=== PATIENT | male | born 1965 | race Caucasian/White ===

== ENCOUNTER 2024-06-04 11:51 | Inpatient (IN) | payer OTHER, SELFPAY ==
[2024-06-04] VITALS (8 sets, daily range): BP systolic 142–160; BP diastolic 53–95; PULSE 89–104; TEMP 36.6–37.2; O2SAT 93–98; BMI 34.4; BMI 34.8
[2024-06-04 12:50] LABS: Basophils Absolute Auto 0.1 10^3/uL (0.0-0.1); Basophils Percent Auto 0.4 % (0.2-2.0); Eosinophils Absolute Auto 0.1 10^3/uL (0.0-0.7); Eosinophils Percent Auto 0.3 % (0.9-7.0); Hematocrit 55.9 % (42.0-54.0); Hemoglobin 18.6 g/dL (14.0-18.0); Immature Granulocytes Abs Auto 0.18 10^3/uL (0.00-0.03); Immature Granulocytes Pct Auto 0.9 % (0.0-0.5); Lymphocytes Absolute Auto 1.7 10^3/uL (1.2-3.8); Lymphocytes Percent Auto 9.1 % (20.5-60.0); Mean Corpuscular HGB Conc 33.3 g/dL (29.9-35.2); Mean Corpuscular Hemoglobin 33.2 pg (25.9-34.0); Mean Corpuscular Volume 99.8 fL (80.0-94.0); Mean Platelet Volume 9.3 fL (9.5-13.5); Monocytes Absolute Auto 1.2 10^3/uL (0.3-0.8); Monocytes Percent Auto 6.4 % (1.7-12.0); Neutrophils Absolute Auto 15.7 10^3/uL (1.4-6.5); Neutrophils Percent Auto 82.9 % (43.0-75.0); Platelet Count 217 10^3/uL (150-450); Red Cell Distribution Width 12.4 % (11.0-15.0)
[2024-06-04] MEDS: LIDOCAINE HCL 1% 100 MG/10 ML MDV INJ (12:52)
[2024-06-04 13:11] LABS: Alanine Aminotransferase 18 U/L (16-63); Albumin Globulin Ratio 0.8; Albumin Level 3.1 g/dL (3.4-5.0); Alkaline Phosphatase 69 U/L (46-116); Anion Gap 13.5; Aspartate Amino Transferase 24 U/L (15-37); BUN Creatinine Ratio 18.9; Bilirubin Total 1.9 mg/dL (0.2-1.0); Calcium 9.3 mg/dL (8.5-10.1); Carbon Dioxide 25.8 mmol/L (21.0-32.0); Chloride 104 mmol/L (98-107); Estimated GFR (African America >60 (>=60 mL/min/1.73m^2); Estimated GFR (Non-African Ame >60 (>=60 mL/min/1.73m^2); Globulin 4.1 g/dL; Glucose 102 mg/dL (74-106); Potassium 4.3 mmol/L (3.5-5.1); Sodium 139 mmol/L (136-145); Total Protein 7.2 g/dL (6.4-8.2)
[2024-06-04 13:13] LABS: Lactate/Lactic Acid 1.4 mmol/L (0.4-2.0)
[2024-06-04] MEDS: AMPICILLIN SODIUM/SULBACTAM NA 3 GM in 0.9 % SODIUM CHLORIDE 100 ML IV (13:35)
--- NOTE | 2024-06-04 13:56 | ED.SKABFB1 ---
HPI - Skin/Abscess/Foreign Bdy General Chief complaint: Skin/Abscess/Foreign Body Stated complaint: l ARM PAIN & SWELLING Time Seen by Provider: 06/04/24 12:10 Source: patient Mode of arrival: walk-in History of Present Illness HPI narrative: The patient is coming to the ER with a extensive redness of the left arm that he noted over the last 24 hours, and it has been growing in size, over the last few days the patient had a initially a rash on his left armpit that he was treating with [id number] medication, there was no other lesion or any concern for any other problems No fever no chills Related Data Home Medications ?Medication ?Instructions ?Recorded ?Confirmed hydrochlorothiazide 12.5 mg tablet 12.5 mg PO QAM 06/04/24 06/04/24 losartan 100 mg tablet 100 mg PO DAILY 06/04/24 06/04/24 sildenafil 50 mg tablet 50 mg PO DAILY PRN erectile 06/04/24 06/04/24 dysfunction Allergies Allergy/AdvReac Type Severity Reaction Status Date / Time No Known Drug Allergies Allergy Verified 06/04/24 12:01 Review of Systems ROS Status of ROS 10 or more systems reviewed and unremarkable except as noted in history and below PFSH PFSH Social History Little interest or pleasure in doing things: not at all Feeling down, depressed, or hopeless: not at all Exam Narrative Exam Narrative: Nurses notes and vital signs reviewed and patient is not hypoxic. Left upper extremity: Upon arrival the patient have a significant cheery redness of the left arm extending from the armpit down to the elbow medially with the area of the axilla showing a small 1 cm oval area around the lesion that could be secondary to an abscess collection. But the patient also had skin induration in the medial aspect of the arm No vascular injury detected General: Well-appearing and in no apparent distress. Skin: Warm, dry, no pallor noted. No rash. Head: Normocephalic, atraumatic. Neck: Supple, non-tender. Eye: Pupils are equal, round and EOMI. No scleral icterus. Ears, Nose, Mouth, and Throat: TM are clear, no nasal mucosal hypertrophy. Oral mucosa is moist, no posterior oropharynx erythema, uvula is mid-line Cardiovascular: Regular Rate and Rhythm without murmur, gallop or rub. Respiratory: No accessory muscle use or respiratory distress. Lungs are clear to auscultation, no wheezing, rales or rhonchi Chest Wall: no tenderness Back: No midline thoracic or lumbar vertebral tenderness. No CVA tenderness Musculoskeletal: normal ROM, no calf or popliteal tenderness, no lower extremity edema/swelling GI: Abdomen is soft, non-distended. Normal bowel sounds. No masses appreciated. No tenderness to palpation. No rebound, guarding, or rigidity noted. Neurological: A&O x4. No cranial nerve dysfunction observed. No truncal ataxia. Moves all extremities. Sensation intact. Psychiatric: Cooperative and interactive. Normal mood and affect. Constitutional Vital Signs, click to edit/add: Last Vital Signs Temp 98.1 F 06/04/24 11:55 Pulse 92 H 06/04/24 11:55 Resp 16 06/04/24 11:55 BP 148/95 H 06/04/24 11:55 Pulse Ox 98 06/04/24 11:55 O2 Del Method Room Air 06/04/24 11:55 Course Vital Signs Vital signs: Vital Signs Temperature 98.1 F 06/04/24 11:55 Pulse Rate 92 H 06/04/24 11:55 Respiratory Rate 16 06/04/24 11:55 Blood Pressure 148/95 H 06/04/24 11:55 Pulse Oximetry 98 06/04/24 11:55 Oxygen Delivery Method Room Air 06/04/24 11:55 Temperature 98.1 F 06/04/24 11:55 Pulse Rate 92 H 06/04/24 11:55 Respiratory Rate 16 06/04/24 11:55 Blood Pressure 148/95 H 06/04/24 11:55 Pulse Oximetry 98 06/04/24 11:55 Oxygen Delivery Method Room Air 06/04/24 11:55 MDM - Skin/Abscess/Foreign Bdy MDM Narrative Medical decision making narrative: The patient CBC shows leukocytosis lactic is not elevated With the patient elevated white blood cells and the fact that it is significant redness noticed on examination. The patient was advised that IV antibiotic would be needed due to the tension and the speed of extension of the cellulitis The patient had bedside drainage of the area after injecting it with lidocaine 1% almost 2 cc draining almost 2 cc of pus. The patient then had a culture sent for evaluation The patient was started on Unasyn Patient case was discussed with Dr. Flynn and he agreed on admitting the patient for further evaluation of cellulitis Lab Data Labs: Lab Results 06/04/24 Range/Units 12:37 WBC 19.0 H (4.0-11.0) 10^3/uL RBC 5.60 (4.70-6.10) 10^6/uL Hgb 18.6 H (14.0-18.0) g/dL Hct 55.9 H (42.0-54.0) % MCV 99.8 H (80.0-94.0) fL MCH 33.2 (25.9-34.0) pg MCHC 33.3 (29.9-35.2) g/dL RDW 12.4 (11.0-15.0) % Plt Count 217 (150-450) 10^3/uL MPV 9.3 L (9.5-13.5) fL Neut % (Auto) 82.9 H (43.0-75.0) % Lymph % (Auto) 9.1 L (20.5-60.0) % [place] % (Auto) 6.4 (1.7-12.0) % Eos % (Auto) 0.3 L (0.9-7.0) % Baso % (Auto) 0.4 (0.2-2.0) % Neut # (Auto) 15.7 H (1.4-6.5) 10^3/uL Lymph # (Auto) 1.7 (1.2-3.8) 10^3/uL [place] # (Auto) 1.2 H (0.3-0.8) 10^3/uL Eos # (Auto) 0.1 (0.0-0.7) 10^3/uL Baso # (Auto) 0.1 (0.0-0.1) 10^3/uL Abs Immat Gran (auto) 0.18 H (0.00-0.03) 10^3/uL Imm/Tot Granulo (auto) 0.9 H (0.0-0.5) % Sodium 139 (136-145) mmol/L Potassium 4.3 (3.5-5.1) mmol/L Chloride 104 (98-107) mmol/L Carbon Dioxide 25.8 (21.0-32.0) mmol/L Anion Gap 13.5 BUN 17.0 (7.0-18.0) mg/dL Creatinine 0.90 (0.70-1.30) mg/dL Est GFR ( Amer) >60 (>=60 mL/min/1.73m^2) Est GFR (Non-Af Amer) >60 (>=60 mL/min/1.73m^2) BUN/Creatinine Ratio 18.9 Glucose 102 (74-106) mg/dL Lactate 1.4 (0.4-2.0) mmol/L Calcium 9.3 (8.5-10.1) mg/dL Total Bilirubin 1.9 H (0.2-1.0) mg/dL AST 24 (15-37) U/L ALT 18 (16-63) U/L Alkaline Phosphatase 69 (46-116) U/L Total Protein 7.2 (6.4-8.2) g/dL Albumin 3.1 L (3.4-5.0) g/dL Globulin 4.1 g/dL Albumin/Globulin Ratio 0.8 Discharge Plan Discharge Chief Complaint: Skin/Abscess/Foreign Body Clinical Impression: Cellulitis Patient Disposition: Admitted as Observation Time of Disposition Decision: 13:52
--- NOTE | 2024-06-04 14:19 | P.HP_ITS ---
HPI H&P: HPI History of Present Illness Chief complaint: l ARM PAIN & SWELLING Narrative: Patient with a progressive swelling and erythema of his left inner upper arm, denies any bite or open wound at the time, today the erythema had progressed to almost the entirety of his upper arm now progressing past the elbow, presented to emergency room, has been using heat and ice without any effect, also started noticing some drainage today. When I saw patient in the emergency room, he was resting comfortably bed, only complaint is his left upper arm, denies chest pain or shortness of breath, feels a little fatigued at times is felt feverish but did not check his temperature Opioid HPI Opioid Management Most Recent Pain and Opioid Data: No Data to Display Review of Systems ROS Status of ROS 10 or more systems reviewed and unremark able except as noted in history and below PFSH PFSH Social History Little interest or pleasure in doing things: not at all Feeling down, depressed, or hopeless: not at all Meds Home Medications and Allergies Home Medications ?Medication ?Instructions ?Recorded ?Confirmed ?Type hydrochlorothiazide 12.5 mg tablet 12.5 mg PO QAM 06/04/24 06/04/24 History losartan 100 mg tablet 100 mg PO DAILY 06/04/24 06/04/24 History sildenafil 50 mg tablet 50 mg PO DAILY PRN erectile 06/04/24 06/04/24 History dysfunction Allergies Allergy/AdvReac Type Severity Reaction Status Date / Time No Known Drug Allergies Allergy Verified 06/04/24 12:01 Exam Constitutional Vital Signs, click to edit/add: Last Vital Signs Temp 98.1 F 06/04/24 11:55 Pulse 92 H 06/04/24 11:55 Resp 16 06/04/24 11:55 BP 148/95 H 06/04/24 11:55 Pulse Ox 98 06/04/24 11:55 O2 Del Method Room Air 06/04/24 11:55 Documenting provider has reviewed patient's vital signs: yes Common normals: no apparent distress Respiratory Common normals: normal respiratory effort and no retractions Cardio Common normals: regular rate and regular rhythm GI Common normals: Normal to inspection, nondistended, normoactive bowel sounds present, soft to palpation and non-tender Extremity Common normals: abnormal to inspection (Erythema covering the entirety of his left upper inner arm, progressed past) General: normal exam except as noted (progressed past elbow, line placed) Results Labs Labs: Short CBC 06/04/24 Range/Units 12:37 WBC 19.0 H (4.0-11.0) 10^3/uL Hgb 18.6 H (14.0-18.0) g/dL Hct 55.9 H (42.0-54.0) % Plt Count 217 (150-450) 10^3/uL BMP 06/04/24 12:37 Sodium 139 Potassium 4.3 Chloride 104 Carbon Dioxide 25.8 BUN 17.0 Creatinine 0.90 Glucose 102 Calcium 9.3 Liver Function 06/04/24 Range/Units 12:37 Total Bilirubin 1.9 H (0.2-1.0) mg/dL AST 24 (15-37) U/L ALT 18 (16-63) U/L Alkaline Phosphatase 69 (46-116) U/L Albumin 3.1 L (3.4-5.0) g/dL Assessment and Plan Assessment and Plan (1) Cellulitis: (2) Status post bariatric surgery: (3) Hypertension: Plan Admission findings: Progressive cellulitis now covering the entirety of his left upper inner arm, small abscess with drainage, significant leukocytosis, patient admitted for IV antibiotics Cellulitis left upper extremity with possible small abscess formation-will check culture of any drainage, blood cultures x 2, patient with significant leukocytosis-start patient on Rocephin and clindamycin, if much improved tomorrow possible conversion to oral History gastric bypass surgery-no complications Hypertension-stable, will continue with current medications Admission status: Patient with untreated cellulitis of left upper arm, IV antibiotics today, blood cultures obtained, try to obtain wound culture, since untreated, medically necessary treatment may only span 1 midnight, observation status
[2024-06-04 14:35] LABS: C Reactive Protein 17.42 mg/dL (<=0.50)
[2024-06-04] MEDS: LACTATED RINGER'S SOLUTION 1,000 ML 100 ML IV (15:37)
[2024-06-04 16:03] LABS: Lactate/Lactic Acid 1.7 mmol/L (0.4-2.0)
[2024-06-04] MEDS: CEFTRIAXONE 1,000 MG in 0.9 % SODIUM CHLORIDE 50 ML 100 MG IV (18:43)
[2024-06-04] MEDS: ACETAMINOPHEN 500 MG TABLET 1000 MG PO (18:44)
[2024-06-04] MEDS: CLINDAMYCIN PHOSPHATE/D5W 600 MG/50 ML PREMIX 100 MG IV (20:38)
[2024-06-05] VITALS (7 sets, daily range): BP systolic 133–167; BP diastolic 72–90; PULSE 77–100; TEMP 36.6–37.1; O2SAT 95–98
[2024-06-05] MEDS: CLINDAMYCIN PHOSPHATE/D5W 600 MG/50 ML PREMIX 100 MG IV (01:54)
[2024-06-05] MEDS: ACETAMINOPHEN 500 MG TABLET 1000 MG PO ×3 (01:57→21:54)
[2024-06-05] MEDS: LACTATED RINGER'S SOLUTION 1,000 ML 100 ML IV (03:04)
[2024-06-05 05:58] LABS: Basophils Absolute Auto 0.1 10^3/uL (0.0-0.1); Basophils Percent Auto 0.4 % (0.2-2.0); Eosinophils Absolute Auto 0.1 10^3/uL (0.0-0.7); Eosinophils Percent Auto 0.8 % (0.9-7.0); Hematocrit 53.8 % (42.0-54.0); Immature Granulocytes Pct Auto 0.6 % (0.0-0.5); Lymphocytes Absolute Auto 1.3 10^3/uL (1.2-3.8); Lymphocytes Percent Auto 7.5 % (20.5-60.0); Mean Corpuscular HGB Conc 33.5 g/dL (29.9-35.2); Mean Corpuscular Hemoglobin 33.5 pg (25.9-34.0); Mean Corpuscular Volume 100.2 fL (80.0-94.0); Mean Platelet Volume 9.1 fL (9.5-13.5); Monocytes Percent Auto 5.6 % (1.7-12.0); Neutrophils Percent Auto 85.1 % (43.0-75.0); Platelet Count 206 10^3/uL (150-450); Red Blood Count 5.37 10^6/uL (4.70-6.10); Red Cell Distribution Width 12.4 % (11.0-15.0); White Blood Count 17.6 10^3/uL (4.0-11.0)
[2024-06-05 06:12] LABS: Anion Gap 12.8; BUN Creatinine Ratio 19.2; C Reactive Protein 17.15 mg/dL (<=0.50); Carbon Dioxide 25.1 mmol/L (21.0-32.0); Chloride 104 mmol/L (98-107); Estimated GFR (African America >60 (>=60 mL/min/1.73m^2); Estimated GFR (Non-African Ame >60 (>=60 mL/min/1.73m^2); Glucose 113 mg/dL (74-106); Potassium 3.9 mmol/L (3.5-5.1); Sodium 138 mmol/L (136-145)
[2024-06-05] MEDS: LOSARTAN POTASSIUM 50 MG TABLET 100 MG PO (09:20)
--- NOTE | 2024-06-05 09:57 | US_ITS ---
[address] [address] Patient Name: DOROTA MENDOZA MRN: [id number] date: 1965 Sex: M Assigned Patient Location: [place] Current Patient Location: [place] Accession/Order Number: [id number] Exam Date: 06/05/2024 10:00 Report Date: 06/05/2024 11:44 At the request of: SHAIKH KRISHNA Procedure: US venous doppler UE LT EXAM: US venous doppler UE LT HISTORY: cellulitis COMPARISON: None. TECHNIQUE: Doppler color flow as well as spectral analysis of the left upper extremity. Findings: There is adequate flow, compressibility, or augmentation within the visualized deep venous structures of the left upper extremity. Mild subcutaneous edema. US/US venous doppler UE LT IMPRESSION: 1. No deep venous thrombus. Electronically authenticated by: ENLSON HOGAN Date: 06/05/2024 11:44
[2024-06-05] MEDS: VANCOMYCIN HCL 1,750 MG in 0.9 % SODIUM CHLORIDE 500 ML 250 MG IV ×2 (10:24→21:45)
--- NOTE | 2024-06-05 10:30 | CM.NOTE ---
Rounds made with Dr. Gallegos, pt continues to have pain to L arm. Pt will change to inpatient and continue IV antibiotics and close monitoring. RN reports they put new line around swelling through the night d/t increased swelling.
[2024-06-05 10:38] LABS: Estimated Average Glucose 100 mg/dL; Glycohemoglobin A1C 5.1 % (4.5-6.2)
--- NOTE | 2024-06-05 11:12 | P.IMPN_ITS ---
Progress Note: A&P Assessment and Plan (1) Sepsis: Assessment and Plan: Patient meet sepsis criteria upon admission. HR > 90, WBC> 13K due to cellulitis. Hemodynamically stable now. Leukocytosis improved However, overnight erythema/skin induration worsened despite on IV abx Qualifiers: Sepsis type: sepsis due to unspecified organism Sepsis acute organ dysfunction status: without acute organ dysfunction Qualified Code(s): A41.9 - Sepsis, unspecified organism (2) Cellulitis and abscess of upper extremity: Assessment and Plan: Cellulitis and abscess of LUE. Worse overnight despite IV abx. Dc'ed clindamycin. Added IV vancomycin. C/w IV rocephin. US ordered to r/o deep tissue infection /abscess (3) Hypertension: Assessment and Plan: Above goal, could be due to current illness. On IV hydralazine as needed. C/w losartan Qualifiers: Hypertension type: primary hypertension Qualified Code(s): I10 - Essential (primary) hypertension Plan Patient originally admitted as observation for sepsis/cellulitis & abscess. While he is better hemodynamically after fluid resuscitation, his cellulitis is worse despite IV abx. Changed IV abx - started on IV vancomycin. US ordered to r/o abscess/deep tissue infection. Patient changed to inpatient as he failed to improve clinically despite initial period of observation and treatment with IV Fluids and IV abx. Internal Medicine - PN: Subj Subjective Interval history: Seen and examined. No overnight events. Overnight, erythema/pain worsened and extended beyond original demarcation line. No fever/chills. Pain is persistent, worse on minimal movement Exam Constitutional Vital Signs, click to edit/add: Last Vital Signs Temp 98.7 F 06/05/24 07:17 Pulse 77 06/05/24 07:17 Resp 18 06/05/24 08:00 BP 142/90 H 06/05/24 07:17 Pulse Ox 95 06/05/24 07:17 O2 Del Method Room Air 06/05/24 07:17 Documenting provider has reviewed patient's vital signs: yes Common normals: no apparent distress and oriented x3 General appearance: cooperative Respiratory Common normals: normal respiratory effort and clear to auscultation bilaterally Effort & inspection: able to speak in complete sentences Auscultation: clear to auscultation bilaterally Cardio Common normals: regular rate, S1 normal heart sound and S2 normal heart sound Rate: regular rate Heart sounds: S1 normal and S2 normal Extremity Other: Left UE - erythema, induration, tenderness extending from just below elbow to all the way upto shoulder. No fluctuance on exam noted. Neuro Common normals: oriented x3, moves all extremities and no focal motor deficits Psych Common normals: mental status grossly normal, denies hallucinations, denies homicidal ideation and denies suicidal ideation Internal Medicine - PN: Obj Da Labs Labs: Laboratory Results - last 24 hr 06/04/24 06/04/24 06/05/24 12:37 15:37 05:46 WBC 19.0 H 17.6 H RBC 5.60 5.37 Hgb 18.6 H 18.0 Hct 55.9 H 53.8 MCV 99.8 H 100.2 H MCH 33.2 33.5 MCHC 33.3 33.5 RDW 12.4 12.4 Plt Count 217 206 MPV 9.3 L 9.1 L Neut % (Auto) 82.9 H 85.1 H Lymph % (Auto) 9.1 L 7.5 L [place] % (Auto) 6.4 5.6 Eos % (Auto) 0.3 L 0.8 L Baso % (Auto) 0.4 0.4 Neut # (Auto) 15.7 H 15.0 H Lymph # (Auto) 1.7 1.3 [place] # (Auto) 1.2 H 1.0 H Eos # (Auto) 0.1 0.1 Baso # (Auto) 0.1 0.1 Abs Immat Gran (auto) 0.18 H 0.10 H Imm/Tot Granulo (auto) 0.9 H 0.6 H Sodium 139 138 Potassium 4.3 3.9 Chloride 104 104 Carbon Dioxide 25.8 25.1 Anion Gap 13.5 12.8 BUN 17.0 15.0 Creatinine 0.90 0.78 Est GFR ( Amer) >60 >60 Est GFR (Non-Af Amer) >60 >60 BUN/Creatinine Ratio 18.9 19.2 Glucose 102 113 H Estimat Average Glucose 100 Hemoglobin A1c 5.1 Lactate 1.4 1.7 Calcium 9.3 9.0 Total Bilirubin 1.9 H AST 24 ALT 18 Alkaline Phosphatase 69 C-Reactive Protein 17.42 H 17.15 H Total Protein 7.2 Albumin 3.1 L Globulin 4.1 Albumin/Globulin Ratio 0.8
[2024-06-05] MEDS: CEFTRIAXONE 1,000 MG in 0.9 % SODIUM CHLORIDE 50 ML 100 MG IV (17:48)
[2024-06-05] MEDS: 0.9 % SODIUM CHLORIDE 250 ML 10 ML IV (17:48)
[2024-06-06] VITALS (7 sets, daily range): BP systolic 130–169; BP diastolic 76–93; PULSE 68–80; TEMP 36.6–36.8; O2SAT 94–98
[2024-06-06] MEDS: ACETAMINOPHEN 500 MG TABLET 1000 MG PO (05:35)
[2024-06-06 05:59] LABS: Basophils Absolute Auto 0.1 10^3/uL (0.0-0.1); Basophils Percent Auto 0.5 % (0.2-2.0); Eosinophils Absolute Auto 0.3 10^3/uL (0.0-0.7); Eosinophils Percent Auto 2.8 % (0.9-7.0); Hematocrit 52.1 % (42.0-54.0); Hemoglobin 17.2 g/dL (14.0-18.0); Immature Granulocytes Abs Auto 0.06 10^3/uL (0.00-0.03); Immature Granulocytes Pct Auto 0.5 % (0.0-0.5); Lymphocytes Absolute Auto 1.2 10^3/uL (1.2-3.8); Lymphocytes Percent Auto 10.4 % (20.5-60.0); Mean Corpuscular Hemoglobin 33.4 pg (25.9-34.0); Mean Corpuscular Volume 101.2 fL (80.0-94.0); Mean Platelet Volume 9.3 fL (9.5-13.5); Monocytes Absolute Auto 0.8 10^3/uL (0.3-0.8); Neutrophils Absolute Auto 9.1 10^3/uL (1.4-6.5); Neutrophils Percent Auto 78.8 % (43.0-75.0); Platelet Count 231 10^3/uL (150-450); Red Blood Count 5.15 10^6/uL (4.70-6.10); Red Cell Distribution Width 12.4 % (11.0-15.0); White Blood Count 11.6 10^3/uL (4.0-11.0)
[2024-06-06 06:11] LABS: Anion Gap 10.4; BUN Creatinine Ratio 17.1; Calcium 8.9 mg/dL (8.5-10.1); Carbon Dioxide 27.8 mmol/L (21.0-32.0); Chloride 107 mmol/L (98-107); Estimated GFR (African America >60 (>=60 mL/min/1.73m^2); Estimated GFR (Non-African Ame >60 (>=60 mL/min/1.73m^2); Glucose 105 mg/dL (74-106); Potassium 4.2 mmol/L (3.5-5.1); Sodium 141 mmol/L (136-145)
[2024-06-06] MEDS: LOSARTAN POTASSIUM 50 MG TABLET 100 MG PO (08:32)
[2024-06-06] MEDS: VANCOMYCIN HCL 1,750 MG in 0.9 % SODIUM CHLORIDE 500 ML 250 MG IV ×2 (09:59→21:24)
--- NOTE | 2024-06-06 10:23 | PM.IMPN1 ---
Progress Note: A&P Assessment and Plan (1) Sepsis: Assessment and Plan: Resolved. Leukocytosis improving. No sig improvement noted in cellulitis. Stable hemodynamics. F/u cultures. C/w IV abx. D/c rocephin, add zosyn Qualifiers: Sepsis type: sepsis due to unspecified organism Sepsis acute organ dysfunction status: without acute organ dysfunction Qualified Code(s): A41.9 - Sepsis, unspecified organism (2) Cellulitis and abscess of upper extremity: Assessment and Plan: Copious purulent drainage after I&D at bedside. Pt subjectively felt better right away. Still has considerable erythema/skin induration and tenderness. No sig improvement from yesterday. C/w IV vancomycin. Add Zosyn. D/c rocephin (3) Hypertension: Assessment and Plan: Stable. C/w losartan Qualifiers: Hypertension type: primary hypertension Qualified Code(s): I10 - Essential (primary) hypertension Internal Medicine - PN: Subj Subjective Interval history: Seen and examined. Overnight, patient experienced worsening of his pain and LUE swelling. He also reported purulent discharge from incision site - incision was made by ED provider when he arrived. Exam Constitutional Vital Signs, click to edit/add: Last Vital Signs Temp 98.3 F 06/06/24 07:09 Pulse 80 06/06/24 07:09 Resp 18 06/06/24 07:09 BP 130/76 06/06/24 07:09 Pulse Ox 94 L 06/06/24 07:09 O2 Del Method Room Air 06/06/24 07:09 Documenting provider has reviewed patient's vital signs: yes Common normals: no apparent distress and oriented x3 General appearance: cooperative Respiratory Common normals: normal respiratory effort and clear to auscultation bilaterally Effort & inspection: able to speak in complete sentences Auscultation: clear to auscultation bilaterally Cardio Common normals: regular rate, S1 normal heart sound and S2 normal heart sound Rate: regular rate Heart sounds: S1 normal and S2 normal Extremity Other: Left UE - erythema, induration, tenderness extending from just below elbow to all the way upto shoulder. Mild improvement from yesterday. Purulent drainage from small area close to shoulder joint. Copious amount of purulent was drained at bedside. I also performed bedside I&D and patient reported instantly feeling better afterwards. Wound was dressed/packed. Neuro Common normals: oriented x3, moves all extremities and no focal motor deficits Psych Common normals: mental status grossly normal, denies hallucinations, denies homicidal ideation and denies suicidal ideation Internal Medicine - PN: Obj Da Labs Labs: Laboratory Results - last 24 hr 06/05/24 06/06/24 05:46 05:45 WBC 11.6 H RBC 5.15 Hgb 17.2 Hct 52.1 MCV 101.2 H MCH 33.4 MCHC 33.0 RDW 12.4 Plt Count 231 MPV 9.3 L Neut % (Auto) 78.8 H Lymph % (Auto) 10.4 L [place] % (Auto) 7.0 Eos % (Auto) 2.8 Baso % (Auto) 0.5 Neut # (Auto) 9.1 H Lymph # (Auto) 1.2 [place] # (Auto) 0.8 Eos # (Auto) 0.3 Baso # (Auto) 0.1 Abs Immat Gran (auto) 0.06 H Imm/Tot Granulo (auto) 0.5 Sodium 141 Potassium 4.2 Chloride 107 Carbon Dioxide 27.8 Anion Gap 10.4 BUN 14.0 Creatinine 0.82 Est GFR ( Amer) >60 Est GFR (Non-Af Amer) >60 BUN/Creatinine Ratio 17.1 Glucose 105 Estimat Average Glucose 100 Hemoglobin A1c 5.1 Calcium 8.9
--- NOTE | 2024-06-06 10:28 | CM.NOTE ---
Rounds made with Dr. Gallegos. Bedside I&D per Dr. Gallegos. Mr. Izaguirre tolerated procedure well. Dr. Gallegos to re-evaluate Mr. Izaguirre later in the day to determine plan of care.
[2024-06-06] MEDS: PIPERACILLIN SODIUM/TAZOBACTAM 3.375 GM in 0.9 % SODIUM CHLORIDE 50 ML IV ×2 (12:32→21:14)
[2024-06-06] MEDS: KETOROLAC TROMETHAMINE 30 MG/ML VIAL IVP (12:32)
[2024-06-07] MEDS: PIPERACILLIN SODIUM/TAZOBACTAM 3.375 GM in 0.9 % SODIUM CHLORIDE 50 ML IV ×2 (04:25→13:13)
[2024-06-07 05:30] VITALS: BP 158/98; PULSE 75; TEMP 36.7; O2SAT 94
[2024-06-07 05:38] LABS: Basophils Absolute Auto 0.1 10^3/uL (0.0-0.1); Basophils Percent Auto 0.9 % (0.2-2.0); Eosinophils Absolute Auto 0.4 10^3/uL (0.0-0.7); Eosinophils Percent Auto 4.3 % (0.9-7.0); Hematocrit 49.7 % (42.0-54.0); Hemoglobin 16.4 g/dL (14.0-18.0); Immature Granulocytes Abs Auto 0.04 10^3/uL (0.00-0.03); Immature Granulocytes Pct Auto 0.4 % (0.0-0.5); Lymphocytes Absolute Auto 1.3 10^3/uL (1.2-3.8); Lymphocytes Percent Auto 14.2 % (20.5-60.0); Mean Corpuscular Hemoglobin 32.7 pg (25.9-34.0); Mean Corpuscular Volume 99.2 fL (80.0-94.0); Mean Platelet Volume 9.1 fL (9.5-13.5); Monocytes Absolute Auto 0.7 10^3/uL (0.3-0.8); Monocytes Percent Auto 7.3 % (1.7-12.0); Neutrophils Absolute Auto 6.7 10^3/uL (1.4-6.5); Neutrophils Percent Auto 72.9 % (43.0-75.0); Platelet Count 249 10^3/uL (150-450); Red Blood Count 5.01 10^6/uL (4.70-6.10); Red Cell Distribution Width 12.1 % (11.0-15.0); White Blood Count 9.2 10^3/uL (4.0-11.0)
[2024-06-07 05:57] LABS: Anion Gap 13.1; BUN Creatinine Ratio 17.1; Calcium 8.9 mg/dL (8.5-10.1); Chloride 109 mmol/L (98-107); Estimated GFR (African America >60 (>=60 mL/min/1.73m^2); Estimated GFR (Non-African Ame >60 (>=60 mL/min/1.73m^2); Glucose 102 mg/dL (74-106); Potassium 4.1 mmol/L (3.5-5.1); Sodium 143 mmol/L (136-145)
[2024-06-07 07:53] VITALS: BP 155/90; PULSE 76; TEMP 36.9; O2SAT 96
[2024-06-07] MEDS: ACETAMINOPHEN 500 MG TABLET 1000 MG PO (09:13)
[2024-06-07] MEDS: LOSARTAN POTASSIUM 50 MG TABLET 100 MG PO (09:13)
[2024-06-07] MEDS: VANCOMYCIN HCL 1,750 MG in 0.9 % SODIUM CHLORIDE 500 ML 250 MG IV (09:14)
[2024-06-07 09:34] LABS: Vancomycin Trough 13.5 ug/mL (5.0-20.0)
--- NOTE | 2024-06-07 10:28 | PM.DS1 ---
DS: Providers Provider Date of admission: 06/05/24 11:12 Primary care physician: OUMOU GREWAL Admitting clinician: Yamil Flynn Attending physician on admission: Yamil Flynn Attending physician on discharge: Shaikh Rosy Discharging clinician: Shaikh Rosy Anticipated date of discharge: 06/07/24 DS: Diagnosis Discharge Diagnosis (1) Sepsis: Qualifiers: Sepsis type: sepsis due to unspecified organism Sepsis acute organ dysfunction status: without acute organ dysfunction Qualified Code(s): A41.9 - Sepsis, unspecified organism (2) Cellulitis and abscess of upper extremity: (3) Hypertension: Qualifiers: Hypertension type: primary hypertension Qualified Code(s): I10 - Essential (primary) hypertension DS: Summary Hospital Course Hospital Course: 58-year-old male presented to ER with left upper extremity pain/redness and swelling. Patient's workup was consistent with sepsis sec to left upper extremities cellulitis and abscess for which she was started on IV clindamycin and Rocephin. He had bedside incision and drainage with purulent material expressed in ER. Patient failed to improve clinically and was subsequently started on IV vancomycin and IV Zosyn. I also performed bedside incision and drainage and was able to drain copious amount of purulent material. Patient slowly improved during the course of admission and today feels well enough with improvement in erythema/swelling and tenderness. Patient is medically stable for discharge. He will be discharged on oral Bactrim and Augmentin for 10 more days. He will need to follow-up with primary care physician in 1 week to ensure he is improving clinically. Patient was educated on worrisome signs and symptoms and was instructed to return to ER if he develops fever or worsening pain/purulence or erythema. Status at Discharge Functional status at discharge: independent ambulation Overall status at discharge: patient is back to baseline Time Spent with Patient Time attestation: Total time spent providing and/or coordinating discharge services: Time spent: greater than 30 minutes Exam Constitutional Vital Signs, click to edit/add: Last Vital Signs Temp 98.4 F 06/07/24 07:53 Pulse 76 06/07/24 07:53 Resp 18 06/07/24 07:53 BP 155/90 H 06/07/24 07:53 Pulse Ox 96 06/07/24 07:53 O2 Del Method Room Air 06/07/24 07:53 Documenting provider has reviewed patient's vital signs: yes Common normals: no apparent distress and oriented x3 General appearance: cooperative Respiratory Common normals: normal respiratory effort and clear to auscultation bilaterally Effort & inspection: able to speak in complete sentences Auscultation: clear to auscultation bilaterally Cardio Common normals: regular rate, S1 normal heart sound and S2 normal heart sound Rate: regular rate Heart sounds: S1 normal and S2 normal Extremity Other: Left UE - erythema, induration, tenderness considerably improved. Large amount of purulent material expressed from incision made on 06/06/24. Neuro Common normals: oriented x3, moves all extremities and no focal motor deficits Psych Common normals: mental status grossly normal, denies hallucinations, denies homicidal ideation and denies suicidal ideation DS: Data Data Completed and Pending Labs on day of discharge: Labs from last 24 hours 06/07/24 06/07/24 08:58 05:27 WBC 9.2 RBC 5.01 Hgb 16.4 Hct 49.7 MCV 99.2 H MCH 32.7 MCHC 33.0 RDW 12.1 Plt Count 249 MPV 9.1 L Neut % (Auto) 72.9 Lymph % (Auto) 14.2 L [place] % (Auto) 7.3 Eos % (Auto) 4.3 Baso % (Auto) 0.9 Neut # (Auto) 6.7 H Lymph # (Auto) 1.3 [place] # (Auto) 0.7 Eos # (Auto) 0.4 Baso # (Auto) 0.1 Abs Immat Gran (auto) 0.04 H Imm/Tot Granulo (auto) 0.4 Sodium 143 Potassium 4.1 Chloride 109 H Carbon Dioxide 25.0 Anion Gap 13.1 BUN 14.0 Creatinine 0.82 Est GFR ( Amer) >60 Est GFR (Non-Af Amer) >60 BUN/Creatinine Ratio 17.1 Glucose 102 Calcium 8.9 Vancomycin Trough 13.5 Preliminary micro results at discharge 06/04/24 13:29 Blood Culture Result 2 - Preliminary Blood NO GROWTH AT 36-48 HOURS. FINAL TO FOLLOW. 06/04/24 13:25 Blood Culture Result 1 - Preliminary Blood NO GROWTH AT 36-48 HOURS. FINAL TO FOLLOW. Discharge Plan Discharge Disposition: Home, Self-Care Discharge Medications: New amoxicillin-pot clavulanate 875-125 mg tablet 1 tab PO BID Qty: 20 0RF sulfamethoxazole-trimethoprim [Bactrim DS] 800-160 mg tablet 1 tab PO BID Qty: 20 0RF Continued losartan 100 mg tablet 100 mg PO DAILY sildenafil 50 mg tablet 50 mg PO DAILY PRN (Reason: erectile dysfunction) Activity: increase activity as tolerated Diet: advance to your usual diet Print Language: Korean Forms: Portal Instructions Follow Up Appointments: F/u with PCP in one week
--- NOTE | 2024-06-07 11:00 | CM.NOTE ---
Rounds made with Dr. Gallegos, assessed pt's wound and was able to express moderate amt of puss from wound bed. Pt will discharge on P.O. antibiotics. Discussed with pt reasons to return to ER, increase redness, swelling, pain or fever's.
[2024-06-07 11:20] VITALS: BP 155/88; PULSE 74; TEMP 36.7; O2SAT 95
--- NOTE | 2024-06-07 18:11 | NUTR.NU ---
Pt was admitted 06/04/24 w/dx sepsis and abscess to left axilla. He is s/p bariatric surgery and adjusting his diet to accommodate GI reduction. PO intakes improved during stay from 25% to 100%. Encourage small meals/snacks containing high quality PRO 6x daily, drink fluids between meals and avoid carbonated beverages and alcohol. Pt to discharge today with continued ATB therapy.
--- NOTE | 2024-06-08 12:10 | CM.NOTE ---
Called pt to update on recent culture that had came back MRSA and need to change antibiotic. Pt will discontinue Bactrim and start Zyvox. Pt verbaizes understanding and denies any questions or concerns.
--- NOTE | 2024-06-09 15:41 | CM.DCFOLLOWU ---
Person spoke with:patient How are you feeling?well How is your pain?better Did you understand your discharge instructions?yes Do you have any questions about your discharge instructions? no Were you given any prescriptions at discharge?yes Were you able to get your prescriptions filled? The new med that was called in, the pharmacy has not got it in yet. Advised to pt that SW will check with director or call the pharmacy Do you understand how to take your medications as ordered?yes Do you have any questions about your follow up appointment and do you plan to keep your follow up appointment? no questions, reviewed follow up Is there anything else that you would like to discuss?no Questions/Comments/Concerns/Other:N/A
--- NOTE | 2024-06-09 15:42 | SWNOTE1 ---
ARTURO completed follow up call and pt said the new medication that was called in on 06/08/24, Sofie did not have ready yet. He was not sure if he should continue meds he was dc on? ARTURO advised pt that she will call back after speaking with director of med/surge. ARTURO spoke to director and only thing we can do is call pharmacy. ARTURO called [facility] pharmacy and spoke to pharmacist. They voiced it was ready for pharmacy picking technician and it was $10. ARTURO called pt and let him know.
== END 2024-06-07 15:09 | disposition home or self-care (01) | DRG 872 ==
LOC: ER 13:52 → MS 15:07
PROVIDERS: Family Medicine; Admitting Provider Internal Medicine; Emergency Provider Emergency Medicine; PCP Family Medicine; Visit Provider Internal Medicine
DX: A41.02 Sepsis due to Methicillin resistant Staphylococcus aureus (principal); L03.114 Cellulitis of left upper limb; L02.414 Cutaneous abscess of left upper limb; I10 Essential (primary) hypertension; Z98.84 Bariatric surgery status
CPT/HCPCS: 10060; 36415; 80048; 80053; 80202; 83036; 83605; 85025; 86140; 87040; 87070; 87075; 87150; 87186; 93971; 94761; 96365; 99285; G0378; J0295; J0696; J1885; J2543; J3370

== ENCOUNTER 2024-07-25 13:39 | Emergency (ER) | payer OTHER, SELFPAY ==
[2024-07-25 13:43] VITALS: BP 166/89; PULSE 83; TEMP 36.6; O2SAT 98; BMI 35.2
[2024-07-25] MEDS: LIDOCAINE HCL 1% 100 MG/10 ML MDV INJ (14:07)
--- NOTE | 2024-07-25 14:08 | ED_ITS ---
HPI HPI - General Adult General Chief complaint: Extremity Problem, Nontraumatic Stated complaint: localized swelling Time Seen by Provider: 07/25/24 13:45 Source: patient Mode of arrival: walk-in Limitations: no limitations History of Present Illness HPI narrative: 59 year old male presents to the ED for an erythematous, raised, painful area to his left upper leg. Onset was a few days ago. Denies fever, chills, injury, drainage. He had a similar area to his left axilla a few weeks ago. Related Data Home Medications ?Medication ?Instructions ?Recorded ?Confirmed losartan 100 mg tablet 100 mg PO DAILY 06/04/24 07/25/24 sildenafil 50 mg tablet 50 mg PO DAILY PRN erectile 06/04/24 07/25/24 dysfunction Previous Rx's ?Medication ?Instructions ?Recorded cephalexin 500 mg capsule 500 mg PO Q6H 10 days #40 caps 07/25/24 doxycycline hyclate 100 mg capsule 100 mg PO BID 10 days #20 caps 07/25/24 Allergies Allergy/AdvReac Type Severity Reaction Status Date / Time No Known Drug Allergies Allergy Verified 06/04/24 12:01 Opioid HPI Opioid Management Most Recent Opioid Data: Last Pain Scale 0 06/07/24 11:17 06/07/24 Last ORT Total Score 6 06/04/24 15:29 06/04/24 Last ORT Risk Category Moderate Risk 06/04/24 15:29 06/04/24 Review of Systems ROS Constitutional Denies: fever or chills Cardiovascular Denies: chest pain Respiratory Denies: shortness of breath Musculoskeletal Denies: neck pain Integumentary/Breast Reports: redness and new lesion Neurological Denies: numbness in extremities or weakness in extremities PFSH PFS Medical History (Updated 07/25/24 @ 14:12 by Yessy Wilkerson) Cellulitis and abscess of upper extremity ?L03.119 - Cellulitis of unspecified part of limb (ICD-10) ?L02.419 - Cutaneous abscess of limb, unspecified (ICD-10) Hypertension ?I10 - Essential (primary) hypertension (ICD-10) Cellulitis ?L03.90 - Cellulitis, unspecified (ICD-10) Hypertension ?I10 - Essential (primary) hypertension (ICD-10) Surgical History (Updated 06/11/24 @ 00:00 by ) Status post bariatric surgery ?Z98.84 - Bariatric surgery status (ICD-10) History of gastric bypass ?Z98.84 - Bariatric surgery status (ICD-10) Family History (Updated 06/04/24 @ 15:26 by Pili Rodriguez RN) Mother Family history of hypertension Father Family history of hypertension Family history of cancer Grandmother Family history of diabetes mellitus Social History (Updated 06/04/24 @ 15:27 by Pili Rodriguez RN) Within the past year, how often did you have a drink containing alcohol: 4 or more times a week Smoking status: Never smoker Non-prescribed substance use: denies use Highest level of school completed/degree received: high school graduate Little interest or pleasure in doing things: not at all Feeling down, depressed, or hopeless: not at all Exam Constitutional Vital Signs, click to edit/add: Last Vital Signs Temp 97.9 F 07/25/24 13:43 Pulse 83 07/25/24 13:43 Resp 16 07/25/24 13:43 BP 166/89 H 07/25/24 13:43 Pulse Ox 98 07/25/24 13:43 O2 Del Method Room Air 07/25/24 13:43 Common normals: no apparent distress and oriented x3 General appearance: cooperative HENMT Common normals: moist oral mucous membranes Eye Common normals: conjunctivae normal and no scleral icterus Neck & C-Spine Common normals: supple Respiratory Common normals: normal respiratory effort Effort & inspection: able to speak in complete sentences and symmetric chest movement Cardio Common normals: regular rate Extremity Other: Raised, firm area to left upper lateral/posterior leg. There is surrounding erythema. No drainage. Neuro Common normals: oriented x3 and moves all extremities Sensorium/orientation: awake and alert Speech: speech normal Course Vital Signs Vital signs: Vital Signs Temperature 97.9 F 07/25/24 13:43 Pulse Rate 83 07/25/24 13:43 Respiratory Rate 16 07/25/24 13:43 Blood Pressure 166/89 H 07/25/24 13:43 Pulse Oximetry 98 07/25/24 13:43 Oxygen Delivery Method Room Air 07/25/24 13:43 Temperature 97.9 F 07/25/24 13:43 Pulse Rate 83 07/25/24 13:43 Respiratory Rate 16 07/25/24 13:43 Blood Pressure 166/89 H 07/25/24 13:43 Pulse Oximetry 98 07/25/24 13:43 Oxygen Delivery Method Room Air 07/25/24 13:43 Medical Decision Making MDM Narrative Medical decision making narrative: I and D was completed. A dressing was applied. He tolerated the procedure well. Prescriptions were provided for doxycycline and Keflex. Follow up with pcp for a recheck, further evaluation and treatment. Warm, moist compresses were discussed. Return precautions were discussed. Follow up with pcp for a recheck, further evaluation and treatment. Medical Records Medical records reviewed: Yes I reviewed the patient's medical records Discharge Plan Discharge Chief Complaint: Extremity Problem, Nontraumatic Clinical Impression: Cellulitis and abscess of left leg Patient Disposition: Home, Self-Care Time of Disposition Decision: 14:11 Condition: Good Mode of Transportation: Private Vehicle Prescriptions / Home Meds: New cephalexin 500 mg capsule 500 mg PO Q6H 10 Days Qty: 40 0RF doxycycline hyclate 100 mg capsule 100 mg PO BID 10 Days Qty: 20 0RF No Action losartan 100 mg tablet 100 mg PO DAILY sildenafil 50 mg tablet 50 mg PO DAILY PRN (Reason: erectile dysfunction) Print Language: Haitian Instructions: Abscess (ED), Abscess Follow-up (ED) Additional Instructions: Return to the ER if your condition worsens. Return to the ER if you do not see improvement over the next 24-48 hours. Referrals: OUMOU GREWAL [Primary Care Provider] - 1 week Discharge Date/Time: 07/25/24 14:25 Procedures ED ID Incision & Drainage I&D Type: abcess Site: lower extremity (upper leg) Side (if applicable): left Sedation/analgesia: none Anesthetic used: without epi Technique: incised with #11 blade Amount of fluid (mL): 2 Packing used: none Complications: bleeding
== END 2024-07-25 14:25 | disposition home or self-care (01) ==
PROVIDERS: Emergency Provider Emergency Medicine; PCP Family Medicine
DX: L02.416 Cutaneous abscess of left lower limb (principal); L03.116 Cellulitis of left lower limb; Z98.84 Bariatric surgery status
CPT/HCPCS: 10060; 99284